=== PATIENT | male | born 1960 ===

== ENCOUNTER 2017-03-02 23:06 | Emergency (ER) | payer SELFPAY ==
[~2017-03-02] VITALS: Ht 154.9 cm; Wt 65.8 kg
[~2017-03-02 23:06] MED LIST: CLARITIN D PO; LISINOPRIL 5MG T5 MG PO; MECLIZINE HYDRO25 MG PO; NOMEDS *; PLAVIX75 MG PO
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
[2017-03-02 23:38] LABS: HEMOGLOBIN 15.8 g/dL (14.1-18.0); LYMPH # 3.4 K/mm3 (0.7-4.5)
[2017-03-03 02:06] VITALS: BP 136/79
--- NOTE | 2017-03-03 05:34 | RADIOLOGY REPORT PS360 ---
HUMERUS-LT CLINICAL INDICATION: Pain following injury INJURY ORDERING PHYSICIAN: Manish Lemus MD PATIENT AGE: 56 years COMPARISON: None FINDINGS: No obvious fracture or dislocation. No lytic or blastic change. There is a faint opacity overlying the greater tuberosity on the external rotation view. This is of questionable clinical significance and may be due to artifact. Calcification from calcific tendinitis or avulsion injury is also a consideration. Dedicated shoulder films may be of further value. IMPRESSION: 1. There is a faint opacity overlying the greater tuberosity on the external rotation view. This is of questionable clinical significance and may be due to artifact. Calcification from calcific tendinitis or avulsion injury is also a consideration. Dedicated shoulder films may be of further value. 2. Otherwise negative left humerus
--- NOTE | 2017-03-03 05:37 | RADIOLOGY REPORT PS360 ---
ELBOW-LT-3 VIEWS HISTORY: Pain following injury INJURY ORDERING PHYSICIAN: Manish Lemus MD PATIENT AGE: 56 years COMPARISON: None FINDINGS: There are faint calcific densities overlying the lateral aspect of the head of the radius which could be due to small avulsion injury versus minor osteophytes. At least one similar density is present at the medial aspect of the radial head. Please correlate clinically. The lateral view is rotated therefore, cannot adequately assess for a fat pad. No displacement or dislocation. IMPRESSION: Avulsion fracture versus osteophyte at the radial head otherwise negative
--- NOTE | 2017-03-03 05:38 | RADIOLOGY REPORT PS360 ---
CHEST-AP VIEW ONLY HISTORY: Posttraumatic pain FALL ORDERING PHYSICIAN: Manish Lemus MD PATIENT AGE: 56 years COMPARISON: 12/04/2012 FINDINGS: There are low lung volumes with vascular crowding. The cardiomediastinal silhouette and pulmonary vascularity are within normal limits. The lungs are clear without infiltrates, suspicious nodules, or pleural effusions. No acute bony abnormalities. IMPRESSION: No acute finding
--- NOTE | 2017-03-03 05:39 | RADIOLOGY REPORT PS360 ---
PELVIS AP ONLY HISTORY: Fall with injury and pain FALL ORDERING PHYSICIAN: Manish Lemus MD PATIENT AGE: 56 years COMPARISON: None FINDINGS: No fracture or dislocation is evident. No significant degenerative change. No lytic or blastic change. The SI joints have an unremarkable appearance. Unremarkable soft tissues. Incidental note made of a vascular stent in the left external iliac and left superficial femoral arteries IMPRESSION: No acute finding
--- NOTE | 2017-03-03 06:15 | RADIOLOGY REPORT PS360 ---
CT HEAD W/O CONTRAST HISTORY: Headache/pain/contusion following injury FELL WITH HEAD AND NECK INJURY ORDERING PHYSICIAN: Manish Lemus MD PATIENT AGE: 56 years COMPARISON: - TECHNIQUE: Axial images obtained without contrast. Brain and bone windows reviewed. FINDINGS: No midline shift, mass effect, intracranial hemorrhage, hydrocephalus, or extra-axial fluid collection is evident. The calvarium has an unremarkable appearance. No mastoid effusion. The visualized paranasal sinuses are unremarkable. IMPRESSION: No acute intracranial findings, no change from -17.
--- NOTE | 2017-03-03 06:16 | RADIOLOGY REPORT PS360 ---
CT CERVICAL SPINE W/O CONT INDICATION: Neck pain following injury FELL WITH HEAD AND NECK INJURY ORDERING PHYSICIAN: Manish Lemus MD PATIENT AGE: 56 years COMPARISON: None TECHNIQUE: Axial images are obtained without contrast. Sagittal and coronal reformatted images are reviewed as well. FINDINGS: There is normal alignment. No fracture or dislocation is evident. No significant degenerative change. No prevertebral soft tissue swelling. Lung apices are clear with paraseptal emphysematous change. Scattered small lymph nodes are present in the neck. IMPRESSION: 1. No acute fracture. 2. Nonacute findings as described above
--- NOTE | 2017-03-03 06:24 | RADIOLOGY REPORT PS360 ---
CT ABD PELVIS W/O CONTRAST CLINICAL INDICATION: Abdominal pain following injury FELL ORDERING PHYSICIAN: Manish Lemus MD PATIENT AGE: 56 years COMPARISON: None TECHNIQUE: Axial images obtained with sagittal and coronal reformats. PROCEDURE: Oral Contrast: None IV Contrast: None . FINDINGS: There is minimal parenchymal opacity in the right lung base laterally nonspecific. Pericardial thickening noted left laterally. The liver, gallbladder, spleen, right adrenal gland, and pancreas are unremarkable. Nodular enlargement of the left adrenal gland at 11 mm and could be due to an adenoma. Follow-up may confirm stability. No renal calculi or hydronephrosis. There is a 3 cm area of decreased attenuation in the upper aspect of the right kidney with some posterior calcification. No hydronephrosis or obstructing ureteral calculus. No intestinal obstruction or free air. No evidence of appendicitis or diverticulitis. Left external iliac artery stent is present. There is mild dilatation of the infrarenal abdominal aorta at 2.6 cm. There is a ventral abdominal hernia containing fat 6 cm above the umbilicus. Degenerative changes are present in the lumbar spine.. IMPRESSION: 1. No acute intra-abdominal or pelvic pathology apparent. 2. 3 cm isodense lesion of the right kidney. This is indeterminate and ultrasound is suggested for further evaluation to determine cystic or solid nature. 3. Ventral abdominal hernia containing fat for other nonacute findings as described above. 4. Other nonacute findings as described above
--- OUTSIDE RECORDS SUMMARY | 2017-03-05 15:31 | External Medical Summary Rpt | CCD ---
Author Author [employer] Organization [employer] Address Unknown Phone Unavailable Purpose Continuity of Care Document - through 2016
--- OUTSIDE RECORDS SUMMARY | 2017-03-05 15:31 | External Medical Summary Rpt | CCD ---
Demographics Preferred Language German Marital Status Unknown Latter-Day Affiliation Unknown Race Unknown Ethnic Group Unknown Author Author , ANDRZEJ DONNELLY Address Unknown Phone Immunization No patient found.
--- OUTSIDE RECORDS SUMMARY | 2017-03-05 15:31 | External Medical Summary Rpt | CCD ---
Author Author , ANDRZEJ DONNELLY Address Unknown Phone [email or web address] Purpose Continuity of Care Document - 03-02-2017 through 2016 Results Labs Lab Lab Date Result Refere Interp Status Commen Order Detail nces retati t Range on CBC w auto diff (03-02-2017 23:31) Automat = 1.4 0-0.2 complet ed 017 K/MM3 ed blood 23:31 basophi l count (count/ vo Baso % = 12.9 0.1-2.0 complet 017 % ed 23:31 Automat = 0.5 0.0-0.4 complet ed 017 K/mm3 ed blood 23:31 eosinop hil count Automat = 4.6 % 0.1-12. complet ed 017 0 ed blood 23:31 eosinop hils/10 0 leukocy t Blood = 5.9 1.3-8.0 complet granulo 017 K/mm3 ed cytes 23:31 automat ed count (numb Granulo = 56.4 37.0-80 complet cyte 017 % .0 ed percent 23:31 age Blood = 53.3 42.0-52 complet hematoc 017 % .0 ed rit 23:31 (volume fractio n) Blood = 15.8 14.1-18 complet hemoglo 017 g/dL .0 ed bin 23:31 measure ment (mass/v olum Absolut = 3.4 0.7-4.5 complet e 017 K/mm3 ed lymphoc 23:31 yte count Lymphoc = 32.0 10-50 complet yte 017 % ed count, 23:31 blood, automat ed Mean = 33.9 27-31.2 complet corpusc 017 pg ed ular 23:31 hemoglo bin (MCH) determ Automat = 29.6 31.8-35 complet ed 017 g/dl .4 ed erythro 23:31 cyte mean corpusc ular h Automat = 114.8 82.2-97 complet ed 017 fl .8 ed erythro 23:31 cyte mean corpusc ular v Absolut = 0.7 0.1-1.0 complet e 017 K/mm3 ed monocyt 23:31 e count [place]ett % = 7.0 % 1.7-9.3 complet 017 ed 23:31 Automat = 19.0 7.4-10. complet ed 017 fl 4 ed blood 23:31 platele t mean volume quinton Blood = 210 142-424 complet platele 017 K/mm3 ed t count 23:31 Red = 4.65 4.6-6.2 complet blood 017 M/mm3 ed cell 23:31 count Automat = 17.9 11.5-17 complet ed 017 % .5 ed erythro 23:31 cyte distrib ution width Blood = 10.5 4.8-10. complet leukocy 017 K/MM3 8 ed ta 23:31 count (number /volume )
--- OUTSIDE RECORDS SUMMARY | 2017-03-05 15:31 | External Medical Summary Rpt | CCD ---
Demographics Preferred Language Romansh Marital Status Unknown Mandaen Affiliation Unknown Race Unknown Ethnic Group Unknown Author Author , ANDRZEJ DONNELLY Address Unknown Phone Immunization No patient found.
--- OUTSIDE RECORDS SUMMARY | 2017-03-05 15:31 | External Medical Summary Rpt | CCD ---
Author Author , ANDRZEJ DONNELLY Address Unknown Phone [email or web address] Purpose Continuity of Care Document - 03-02-2017 [...] 017 K/mm3 ed monocyt 23:31 e count [place] % = 7.0 % 1.7-9.3 complet 017 [...]
== END 2017-03-03 02:06 | disposition home or self-care (01) ==
LOC: ER 23:06
PROVIDERS: Emergency Medicine
PROC: 0HQ2XZZ Repair Right Ear Skin, External Approach (ICD-10-PCS; principal; 2017-03-03)
PROC: 0HQBXZZ Repair Right Upper Arm Skin, External Approach (ICD-10-PCS; principal; 2017-03-03)
PROC: 0HQ0XZZ Repair Scalp Skin, External Approach (ICD-10-PCS; principal; 2017-03-03)
DX: S01.311A Laceration without foreign body of right ear, initial encounter (principal); S01.01XA Laceration without foreign body of scalp, initial encounter; S41.112A Laceration without foreign body of left upper arm, initial encounter; W10.9XXA Fall (on) (from) unspecified stairs and steps, initial encounter; Y92.9 Unspecified place or not applicable; S00.93XA Contusion of unspecified part of head, initial encounter; S16.1XXA Strain of muscle, fascia and tendon at neck level, initial encounter; S53.402A Unspecified sprain of left elbow, initial encounter; F10.929 Alcohol use, unspecified with intoxication, unspecified; I10 Essential (primary) hypertension; F17.210 Nicotine dependence, cigarettes, uncomplicated; Z23 Encounter for immunization
CPT/HCPCS: G0168